=== PATIENT | male | born 1995 | race Caucasian/White ===

== ENCOUNTER → 2017-03-21 | Outpatient (CLI) | payer BC ==
--- NOTE | 2017-03-21 17:52 | DIAGNOSTIC IMAGING REPORT ---
SI JOINTS 3 OR MORE VIEWS CLINICAL HISTORY: LOW BACK PAIN pain COMPARISON STUDY: None FINDINGS: Normal study IMPRESSION: Normal study Electronically signed by: Bran Fernandez M.D. 03/21/2017 5:51 PM Dictated Date/Time: 03/21/2017 5:51 PM
== END | disposition home or self-care (01) ==
LOC: C.RAD 17:22
PROVIDERS: ATTEND Internal Medicine Gastroenterology
DX: K50.80 Crohn's disease of both small and large intestine without complications (principal); M54.5 Low back pain

== ENCOUNTER → 2017-06-18 | Outpatient (CLI) | payer BC ==
--- NOTE | 2017-06-18 09:47 | DIAGNOSTIC IMAGING REPORT ---
L-SPINE MIN 4 VIEWS ROUTINE HISTORY: Pain K50.90 Crohn's [id number] Low back painM46.1 Sacroiliitis, not COMPARISON: None. FINDINGS: There is no fracture. No subluxation. Disc spaces are preserved. IMPRESSION: No fracture or subluxation within the lumbar spine. The above report was generated using voice recognition software. It may contain grammatical, syntax or spelling errors. Electronically signed by: Bran Fernandez M.D. 06/18/2017 9:45 AM Dictated Date/Time: 06/18/2017 9:45 AM
== END | disposition home or self-care (01) ==
LOC: C.RAD1850 09:23
PROVIDERS: ATTEND Internal Medicine Rheumatology
DX: K50.90 Crohn's disease, unspecified, without complications (principal); M46.1 Sacroiliitis, not elsewhere classified; M54.5 Low back pain

== ENCOUNTER → 2017-06-25 | Outpatient (CLI) | payer BC ==
--- NOTE | 2017-06-25 17:48 | DIAGNOSTIC IMAGING REPORT ---
SI JOINTS WITHOUT HISTORY: 22 years-old Male acute low back and sacral pain., concern for sacroiliitis. History of inflammatory bowel disease. COMPARISON: Lumbar spine radiographs 06/18/2017, radiographs of the sacroiliac joints, 03/21/2017 TECHNIQUE: Multiplanar multisequence MRI of the sacroiliac joints was obtained without the use of IV contrast. FINDINGS: Large [id number] customer service and sales consultant images demonstrate no gross abnormality of the lower abdomen or pelvis. At least moderate erosive changes with subcortical and subchondral edema noted within the left sacroiliac joint, greatest along the iliac margin. There are less apparent mild to moderate erosive changes of the right sacroiliac joint with areas of subcortical and subchondral sclerosis and subacute to chronic appearing remodeling changes. No significant right sacroiliac joint bone marrow edema is identified. There is no fracture, soft tissue collection or abscess identified. There is a broad-based posterior disc bulge with mild posterior intervertebral disc space narrowing at L5-S1 with small annular fissure. No associated significant central canal or foraminal narrowing is seen. IMPRESSION: 1. Bilateral asymmetric sacroiliitis, worse on the left where there are at least moderate erosive changes. These findings are likely from the patient's underlying inflammatory bowel disease. Psoriatic arthritis or reactive arthritis may have a similar appearance. 2. Incidental note is made of mild posterior intervertebral disc space narrowing at L5-S1 with broad-based posterior disc bulge and small annular tear. The above report was generated using voice recognition software. It may contain grammatical, syntax or spelling errors. Electronically signed by: Drew Metzger M.D. 06/25/2017 5:46 PM Dictated Date/Time: 06/25/2017 5:33 PM
== END | disposition home or self-care (01) ==
LOC: C.MRI 15:47
PROVIDERS: ATTEND Internal Medicine Rheumatology
DX: K50.90 Crohn's disease, unspecified, without complications (principal); M46.1 Sacroiliitis, not elsewhere classified; M54.5 Low back pain

== ENCOUNTER 2017-12-25 08:51 | Emergency (ER) | payer BC, OTHER ==
[~2017-12-25] VITALS: Ht 172.7 cm; Wt 56.0 kg
[2017-12-25 08:57] VITALS: TEMP 36.7; Ht 172.7 cm; Wt 56.0 kg
[2017-12-25] MEDS ORDERED: ALBUT/IPRATROP 3MG/0.5MG NEB 3 ML VIAL INH STA (09:16)
[2017-12-25] MEDS ORDERED: ADAL40KI INJ (09:21)
[2017-12-25] MEDS ORDERED: MESA1.2T PO (09:21)
--- NOTE | 2017-12-25 09:56 | DIAGNOSTIC IMAGING REPORT ---
CHEST 2 VIEWS ROUTINE CLINICAL HISTORY: 22 years-old Male presenting with EVALUATE RESPIRATORY DISTRESS.DYSPNEA. TECHNIQUE: PA and lateral views of the chest were obtained. COMPARISON: None. FINDINGS: Cardiomediastinal silhouette normal. Lungs and pleural spaces clear. Osseous structures normal. Upper abdomen normal. IMPRESSION: 1. No acute cardiopulmonary disease. Electronically signed by: Scott Quintanilla M.D. 12/25/2017 9:54 AM Dictated Date/Time: 12/25/2017 9:54 AM
[2017-12-25 10:55] LABS: INFLUENZA B ANTIGEN Neg for Influ B (NEG)
[2017-12-25 11:06] LABS: BASO % 0.4 %; BASO ABS # 0.03 K/uL (0-0.2); EOS % 3.4 %; EOS ABS # 0.26 K/uL (0-0.5); HEMATOCRIT 42.9 % (42-52); HEMOGLOBIN 15.3 g/dL (14.0-18.0); IG# 0.01 K/uL (0.00-0.02); LYMPH % 27.3 %; LYMPH ABS # 2.06 K/uL (1.2-3.4); MEAN CELL VOLUME 86.7 fL (80-100); MEAN CORPUSCULAR HEMOGLOBIN 30.9 pg (25-34); MEAN CORPUSCULAR HGB CONC 35.7 g/dl (32-36); MEAN PLATELET VOLUME 11.6 fL (7.4-10.4); NEUT % 60.8 %; NEUT ABS # 4.58 K/uL (1.4-6.5); PLATELET COUNT 259 K/uL (130-400); RED CELL DISTRIBUTION WIDTH CV 12.4 % (11.5-14.5); RED CELL DISTRIBUTION WIDTH SD 39.5 fL (36.4-46.3); WHITE BLOOD COUNT 7.54 K/uL (4.8-10.8)
[2017-12-25 11:12] LABS: CALCIUM 9.2 mg/dl (8.5-10.1); CREATININE 1.13 mg/dl (0.60-1.40); POTASSIUM 3.3 mmol/L (3.5-5.1)
[2017-12-25] MEDS ORDERED: VNTHFA/IN INH (11:21)
[2017-12-25 11:22] VITALS: BP 118/70; PULSE 82; O2SAT 99
--- NOTE | 2017-12-25 12:51 | EMERGENCY ROOM VISIT NOTE ---
ED Visit Note First contact with patient: 09:00 Chief Complaint: Cough and sore throat. History of Present Illness: Her Evan is a 22-year-old white male who ambulates into the ED complaining of cough and sore throat. Historically patient has a history of Crohn's disease and is currently taking Humira. Patient reports he has had a mildly productive cough of whitish/yellowish sputum for the last 5 days. Initially was mild and has gradually increased in its intensity. He reports taking a deep breath increases his cough. He has not identified any alleviating factors related to the cough. He has not taken any medications for his cough prior to arrival at the hospital. Associated with his cough he reports he has had nasal congestion/drainage, a mild sore throat and intermittently he is been hearing himself wheeze when he is coughing. He denies fevers, chills, sweats, skin eruptions, skin color changes, hearing changes, painful talking, drooling, inability to swallow, neck pain/stiffness, chest pain, palpitations, palpitations, previous clots, claudication, cramping, recent surgery/inactivity/extended travel, tobacco use, abdominal pain, nausea/ vomiting. Review of Systems: As noted above in history of present illness. All body systems were reviewed and found to be negative as noted above. Past Medical History: As previously noted, kidney stones and status post wisdom teeth extraction. Current Medications: As previously noted, Liaida Allergies to Medications: Patient denies. Social History: Patient is currently employed; he feels safe in his home environment; he denies tobacco and alcohol use. Physical Examination: Vital Signs: Date Time Temp Pulse Resp B/P (MAP) Pulse Ox O2 Delivery O2 Flow Rate FiO2 12/25/17 11:22 82 18 118/70 99 Room Air 12/25/17 10:01 86 18 112/62 100 Room Air 12/25/17 08:57 36.7 95 18 122/68 100 Room Air 12/25/17 08:57 100 Room Air GENERAL: 22-year-old male in mild distress due to his symptoms; no acute respiratory distress, nontoxic-appearing, afebrile and hemodynamically stable. NEUROLOGICAL: Awake, alert and oriented to person, place and time. Answering questions appropriately and following commands. Normal gait. Good hand eye coordination. No focal motor sensory deficits. SKIN: Warm, dry and pink. No soft tissue eruptions or trauma noted. HEENT: Atraumatic and normocephalic. No erythema or tenderness over the frontal or maxillary sinuses. PERRLA. Sclera white and conjunctiva pink without drainage. No drainage from naris with audible congestion. Oral cavity moist and pink. Uvula is midline and no abscesses were seen. Pharynx is nonerythematous or edematous. No tonsillar hypertrophy or exudates. Speech normal and clear. No lymphadenopathy. Trachea midline. No jugular venous distention. No laryngeal tenderness. BACK: No tenderness over the bony spine. No meningismus or nuchal rigidity. No CVA tenderness. THORAX: Lungs sounds are clear to auscultation but decreased bilaterally in the bases. Equal bilaterally with symmetrical chest wall. No wheezing, rales or rhonchi. No crepitus, tenderness, subcutaneous air or deformities noted. HEART: Regular rate and rhythm. No gallops, rubs or murmurs are appreciated. ABDOMEN: Flat, soft and nontender. Positive bowel sounds in all quadrants. No guarding, rigidity or organomegaly. EXTREMITIES: Moves all extremities well on command and with purpose. All distal neurovascular statuses are intact and equal bilaterally. No calf tenderness or cords. ED Course: Patient is assessed as noted above. Patient's medication list was reviewed. Laboratory Testing: Test 12/25/17 09:21 12/25/17 09:30 Range/Units Influenza Type A Antigen Neg for Influ A NEG Influenza Type B Antigen Neg for Influ B NEG White Blood Count 7.54 4.8-10.8 K/uL Red Blood Count 4.95 4.7-6.1 M/uL Hemoglobin 15.3 14.0-18.0 g/dL Hematocrit 42.9 42-52 % Mean Corpuscular Volume 86.7 80-100 fL Mean Corpuscular Hemoglobin 30.9 25-34 pg Mean Corpuscular Hemoglobin Concent 35.7 32-36 g/dl Platelet Count 259 130-400 K/uL Mean Platelet Volume 11.6 7.4-10.4 fL Neutrophils (%) (Auto) 60.8 % Lymphocytes (%) (Auto) 27.3 % Monocytes (%) (Auto) 8.0 % Eosinophils (%) (Auto) 3.4 % Basophils (%) (Auto) 0.4 % Neutrophils # (Auto) 4.58 1.4-6.5 K/uL Lymphocytes # (Auto) 2.06 1.2-3.4 K/uL Monocytes # (Auto) 0.60 0.11-0.59 K/uL Eosinophils # (Auto) 0.26 0-0.5 K/uL Basophils # (Auto) 0.03 0-0.2 K/uL RDW Standard Deviation 39.5 36.4-46.3 fL RDW Coefficient of Variation 12.4 11.5-14.5 % Immature Granulocyte % (Auto) 0.1 % Immature Granulocyte # (Auto) 0.01 0.00-0.02 K/uL Sodium Level 140 136-145 mmol/L Potassium Level 3.3 3.5-5.1 mmol/L Chloride Level 105 98-107 mmol/L Carbon Dioxide Level 30 21-32 mmol/L Anion Gap 5.0 3-11 mmol/L Blood Urea Nitrogen 11 7-18 mg/dl Creatinine 1.13 0.60-1.40 mg/dl Est Creatinine Clear Calc Drug Dose 79.8 ml/min Estimated GFR () 104.9 Estimated GFR (Non- 90.5 BUN/Creatinine Ratio 9.5 10-20 Random Glucose 87 70-99 mg/dl Calcium Level 9.2 8.5-10.1 mg/dl Chest X-Rays: Were read by myself and the radiologist showing no acute infiltrates, effusions or pneumothorax. Normal heart silhouette and bony anatomy. Patient was given an albuterol/Atrovent nebulizer breathing treatment. Patient was reassessed after his treatment and he had improved air movement in all zhou and continued to have no wheezing, rales or rhonchi. Patient was educated about today's findings and instructed on his treatment plan ; he verbalized understanding and agreement with this plan. Clinical Impression: Upper respiratory tract infection. Decision-Making: Initially my differential diagnosis I considered upper respiratory tract infection, influenza, pneumonia, bronchitis, pulmonary embolism and other causes. Disposition: Patient discharged home in stable condition; prior to departure he was reassessed and subjectively reported he was feeling better. Plan: Patient was encouraged use 2 puffs of albuterol inhaler with spacer every 6 hours for the next 5 days and as needed for severe coughing episodes. Patient was encouraged use ibuprofen or acetaminophen as needed for mild pains and/or fevers. Patient was encouraged consider OTC decongestants and/or cough suppressants. Patient was encouraged to follow-up with his PCP for recheck in 2-4 days. Patient was encouraged return ED for worsening/uncontrolled cough, fevers, coughing up blood, shortness of breath/wheezing or any new/concerning symptoms.
== END 2017-12-25 11:28 | disposition home or self-care (01) ==
LOC: C.EDB 08:55 → C.EDA 11:28
DX: J06.9 Acute upper respiratory infection, unspecified (principal); J02.9 Acute pharyngitis, unspecified; R05 Cough